=== PATIENT | female | born 1970 | race Caucasian/White ===

== ENCOUNTER 2016-05-26 20:25 | Emergency (ER) | payer BC | END 2016-05-27 00:05 | disposition left against medical advice (07) | LOC: ER1 20:25 | DX: Z53.21 Procedure and treatment not carried out due to patient leaving prior to being seen by health care provider (principal) ==

== ENCOUNTER → 2020-09-25 | Outpatient (CLI) | payer BC | LOC: LAB 08:12 | DX: E03.9 Hypothyroidism, unspecified (principal) | CPT/HCPCS: 36415; 84439; 84443; 84481 ==